=== PATIENT | male | born 1990 | race Caucasian/White ===

== ENCOUNTER 2021-09-03 22:29 | Emergency (ER) | payer OTHER ==
[~2021-09-03] VITALS: Ht 188 cm; Wt 113.4 kg
[2021-09-04] VITALS: BP 122/59
[2021-09-04 00:04] LABS: INR 1.1 (0.9-1.15); Partial Thromboplastin Time 26.9 sec (23.6-33.0)
[2021-09-04] MEDS ORDERED: APIX5TAB PO ×2 (01:00→01:16)
[2021-09-04] MEDS ORDERED: APIXABAN 5 MG TAB PO STA (01:17)
== END 2021-09-04 01:37 | disposition home or self-care (01) ==
LOC: ER 22:31
DX: I82.4Z2 Acute embolism and thrombosis of unspecified deep veins of left distal lower extremity (principal); Z88.0 Allergy status to penicillin
CPT/HCPCS: 36415; 85610; 85730; 93971